=== PATIENT | male | born 1970 | race Caucasian/White ===

== ENCOUNTER 2017-06-01 14:50 | Emergency (ER) | payer OTHER, MEDICAID ==
[~2017-06-01] VITALS: Ht 175.3 cm; Wt 93.0 kg
[2017-06-01 14:50] VITALS: BP 132/86
[2017-06-01] MEDS ORDERED: ARIPIPRAZOLE 5 MG TABLET PO ONE (15:30)
[2017-06-01] MEDS ORDERED: ARIPIPRAZOLE 2 MG TABLET ONE (15:31)
== END 2017-06-01 15:36 | disposition home or self-care (01) ==
LOC: ER 14:53
DX: F25.9 Schizoaffective disorder, unspecified (principal); E11.9 Type 2 diabetes mellitus without complications; F32.9 Major depressive disorder, single episode, unspecified; F90.9 Attention-deficit hyperactivity disorder, unspecified type; F10.10 Alcohol abuse, uncomplicated; F17.200 Nicotine dependence, unspecified, uncomplicated
CPT/HCPCS: 99283; A4606; Z7610

== ENCOUNTER 2021-04-08 00:27 | Emergency (ER) | payer MEDICARE, OTHER ==
[~2021-04-08] VITALS: Ht 175.3 cm; Wt 97.5 kg
--- NOTE | 2021-04-08 03:52 | NUR ---
BIBSELF C/O SI WITH PLAN TO SUICIDE BY SENIOR EXAMINER OR HANG HIMSELF. PT REQUESTING MEDICAL CLEARANCE FOR VOLUNTARY ADMISSION TO [facility]. NO IMMEDIATE SIGNS OF DISTRESS NOTED. PT CALM AND COOPERATIVE. PT O KING MERLOS. WILL CONT TO MONITOR PT.
--- NOTE | 2021-04-08 04:03 | NUR ---
Note afia in EDM - 04/08/21 at 0714 by EVICTOR PT [id number]. BIBSELF C/O SI WITH PLAN TO SUICIDE BY FIREARMS ASSEMBLY SUPERVISOR OR HANG HIMSELF, REQUESTING TO BE ADMITTED TO A [facility]. PT PLACED IN A GOWN, ON MONITOR, AND PULSE OX.
[2021-04-08 05:13] LABS: BASOPHILS # (AUTO) 0.1 K/uL (0.0-0.2); BASOPHILS % (AUTO) 0.9 % (0.0-2.0); EOSINOPHILS % (AUTO) 2.4 % (0.0-6.0); HEMATOCRIT 47 % (39-51); HEMOGLOBIN 15.7 g/dL (13.5-17.5); LYMPHOCYTES # (AUTO) 2.2 K/uL (0.8-4.8); LYMPHOCYTES % (AUTO) 22.2 % (20.0-44.0); MEAN CORPUSCULAR HGB CONC 34 g/dl (31.0-36.0); MEAN CORPUSCULAR VOLUME 98 fL (80-96); MONOCYTES # (AUTO) 0.8 K/uL (0.1-1.30); MONOCYTES % (AUTO) 8.4 % (2.0-12.0); NEUTROPHILS # (AUTO) 6.5 K/uL (1.8-8.9); NEUTROPHILS % (AUTO) 66.1 % (43.0-81.0); PLATELET COUNT (AUTO) 204 K/uL (150-450); RED BLOOD CELL COUNT(AUTO) 4.74 MIL/uL (4.5-6.0); WHITE BLOOD COUNT (AUTO) 9.8 K/uL (4.3-11.0)
[2021-04-08 05:30] LABS: CALCIUM, SERUM 8.2 mg/dL (8.5-10.1); CARBON DIOXIDE 28 mmol/L (21-32); CHLORIDE 105 mmol/L (98-107); GLUCOSE 105 mg/dL (74-106); POTASSIUM 3.6 mmol/L (3.5-5.1); SODIUM SERUM 139 mmol/L (136-145); UREA NITROGEN, BLOOD 10 mg/dL (7-18)
[2021-04-08 05:45] LABS: BILIRUBIN,URINE NEGATIVE (NEGATIVE); COLOR,URINE YELLOW (YELLOW); LEUKOCYTE ESTERASE ,URINE NEGATIVE (NEGATIVE); NITRITE, URINE NEGATIVE (NEGATIVE); PH,URINE 7.5 (5.0-8.0); PROTEIN,URINE NEGATIVE (NEGATIVE); UGLUCOSE NEGATIVE (NEGATIVE); UROBILINOGEN,URINE 0.2 EU/dL (0.2)
[2021-04-08 05:49] LABS: ALANINE AMINOTRANSFERASE 38 U/L (12-78); ALBUMIN 3.2 g/dL (3.4-5.0); ALKALINE PHOSPHATASE 61 U/L (46-116); ASPARTATE AMINOTRANSFERASE 21 U/L (15-37); BILIRUBIN,DIRECT 0.1 mg/dL (0.0-0.2); BILIRUBIN,TOTAL 0.3 mg/dL (0.2-1.0); TOTAL PROTEIN, SERUM 6.1 g/dL (6.4-8.2)
[2021-04-08 06:13] LABS: ACETAMINOPHEN < 2 ug/ml (10-30); ALCOHOL, BLOOD < 3 mg/dL (0-0)
--- NOTE | 2021-04-08 06:47 | NUR ---
FACESHEET AND CLINICALS FAXED TO [facility].
--- NOTE | 2021-04-08 08:17 | NUR ---
CALLED [facility]TA[facility]POKE WITH [facility], PT CHART IS BEING REVIEWED AND WILL UPDATE US.
--- NOTE | 2021-04-08 08:42 | NUR ---
THE PATIENT IS ACCEPTED TO [facility] [address] [facility]ALLS
--- NOTE | 2021-04-08 08:48 | NUR ---
REPORT GIVEN TO NURSE VICTOR M FROM [facility]
--- NOTE | 2021-04-08 09:21 | NUR ---
CALLED [facility] ETA 30 MINS PER JASMYNE
--- NOTE | 2021-04-08 10:21 | NUR ---
THE PATIENT IS DISCHARGE FROM ER GOING TO [facility] IN STABLE CONDITION AND VIA ARRANGED TRANSPO.
--- NOTE | 2021-04-08 10:21 | NUR ---
REPORT GIVEN TO AMBULANCE STAFF
[2021-04-08 10:22] VITALS: BP 135/82
== END 2021-04-08 10:22 ==
LOC: ER 00:27
DX: F25.1 Schizoaffective disorder, depressive type (principal); R45.851 Suicidal ideations; Z20.822 Contact with and (suspected) exposure to COVID-19; F17.210 Nicotine dependence, cigarettes, uncomplicated; E11.9 Type 2 diabetes mellitus without complications; Z59.00 Homelessness unspecified
CPT/HCPCS: 36415; 80048; 80076; 80143; 80307; 80320; 81003; 85025; 87426; 99285; C9803; G0480